=== PATIENT | male | born 1975 | race Asian ===

== ENCOUNTER 2017-02-13 19:51 | Emergency (ER) | payer MEDICAID, SELFPAY ==
[~2017-02-13] VITALS: Ht 165.1 cm; Wt 107.0 kg
[~2017-02-13 19:51] MED LIST: NOCURR
[2017-02-13] MEDS ORDERED: ONDANSETRON HCL 4 MG/2 ML VIAL IM ONE (21:30)
[2017-02-13] MEDS ORDERED: PERTUSS(ACELL),DIPH,TET VAC/PF 0.5 ML VIAL IM ONE (21:30)
[2017-02-13] MEDS ORDERED: OxyCODONE HCL/ACETAMINOPHEN 5-325 MG TABLET PO ONE (23:00)
[2017-02-14] MEDS ORDERED: IBUPROFEN 800 MG TABLET PO ONE (00:15)
[2017-02-14 00:30] VITALS: BP 156/99
== END 2017-02-14 00:43 | disposition home or self-care (01) ==
LOC: EMS 19:52
DX: S00.01XA Abrasion of scalp, initial encounter (principal); R03.0 Elevated blood-pressure reading, without diagnosis of hypertension; Z88.0 Allergy status to penicillin; W22.8XXA Striking against or struck by other objects, initial encounter; Y93.39 Activity, other involving climbing, rappelling and jumping off; Y92.098 Other place in other non-institutional residence as the place of occurrence of the external cause; Y99.8 Other external cause status
CPT/HCPCS: 70450; 72125; 90471; 90715; 96372; 99284; J2405